=== PATIENT | female | born 1960 | race Caucasian/White ===

== ENCOUNTER 2018-04-04 07:56 | Emergency (ER) | payer OTHER ==
[~2018-04-04] VITALS: Ht 170.2 cm; Wt 63.6 kg
[2018-04-04] MEDS ORDERED: ESTR1TAB15 PO (08:17)
[2018-04-04] MEDS ORDERED: KETOROLAC 30 MG/1 ML IM ONE (08:30)
[2018-04-04] MEDS ORDERED: OXYcodone/APAP 5/325MG TABLET PO ONE (08:30)
[2018-04-04] MEDS ORDERED: KETOROLAC 30 MG/1 ML ONE (08:31)
[2018-04-04] MEDS ORDERED: OXYcodone/APAP 5/325MG TABLET ONE (08:31)
[2018-04-04 10:46] VITALS: BP 112/58
== END 2018-04-04 10:53 | disposition home or self-care (01) ==
LOC: ED 08:51
DX: S40.011A Contusion of right shoulder, initial encounter (principal); S40.021A Contusion of right upper arm, initial encounter; S50.01XA Contusion of right elbow, initial encounter; S70.11XA Contusion of right thigh, initial encounter; S80.01XA Contusion of right knee, initial encounter; W01.0XXA Fall on same level from slipping, tripping and stumbling without subsequent striking against object, initial encounter; Y93.89 Activity, other specified; Y92.410 Unspecified street and highway as the place of occurrence of the external cause; Y99.8 Other external cause status
CPT/HCPCS: 73030; 73060; 73080; 73502; 73564; 96372; 99284; J1885